=== PATIENT | female | born 1985 | race Caucasian/White ===

== ENCOUNTER → 2018-09-08 | Outpatient (CLI) | payer BC | LOC: LAB.O 17:18 | PROVIDERS: ATTEND Family Medicine | DX: I77.6 Arteritis, unspecified (principal) ==

== ENCOUNTER → 2019-05-14 | Outpatient (CLI) | payer SELFPAY | LOC: YCFC.O 09:39 | PROVIDERS: ATTEND Nurse Practitioner Family | DX: Z02.9 Encounter for administrative examinations, unspecified (principal) ==